=== PATIENT | male | born 1960 | race Caucasian/White ===

== ENCOUNTER 2020-09-05 08:07 | Day surgery (SDC) | payer OTHER ==
[~2020-09-05 08:07] MED LIST: AMLODIPINE-BEN1 EAC2 PO; LIPITOR20 MG PO; OMEPRAZOLE40 MG PO
--- NOTE | 2020-09-05 09:57 | NUR ---
09/05/20 0957 Arvin Mueller RESPONDS TO VOICE ON ENTRY TO [facility]. DENIES NAUSEA OR PAIN. FALLS ASLEEP EASILY
--- NOTE | 2020-09-05 10:41 | OR ---
[facility] [address], [place] [address] Signed DATE OF OPERATION: 09/05/2020 SURGEON: Maurice Thakur MD PREOPERATIVE DIAGNOSES: 1. Screening. 2. Colonoscopy, age 49, 2009 in [place], [place]. POSTOPERATIVE DIAGNOSES: 1. Minimal sigmoid diverticulosis. 2. Minimal internal hemorrhoids. 3. 5 mm polyp at 54 cm originally written 75 cm. 4. 10 mm sessile polyp, proximal right colon (snare). 5. 4 mm polyp at 55 cm. 6. 3 mm polyp at 40 cm. PROCEDURE: Colonoscopy, snare polypectomy and hot biopsy. ESTIMATED BLOOD LOSS: None. INDICATIONS: Obdulio is a 59-year-old gentleman, asked to see me for a followup colonoscopy. He underwent a colonoscopy at age 49 back in 2009. He thinks maybe a small polyp was removed, but he just can't remember. He did check with his mother and found out no polyps were removed. Currently, he has no lower GI complaints. In the office, I gave him a pamphlet on colonoscopy and we looked at that together along with the risks including, but not limited to gas bloating, crampy abdominal pain, bleeding, perforation requiring surgery, and missed diagnosis. We also discussed the need for IV conscious sedation, he had expressed understanding and wished to proceed. DESCRIPTION OF PROCEDURE: Obdulio was taken into our endoscopy suite and placed in the left lateral decubitus position. He was given 8 mg of Versed and 175 mcg of fentanyl to cover the case. A digital rectal exam was performed and he does have some induration to the prostate gland. It is not overly enlarged. He does have some external hemorrhoids. The adult colonoscope was then introduced, advanced up through a somewhat narrow angulated tortuous sigmoid colon. That required extra sedation. We did use just a little abdominal compression and the scope passed nicely into the cecum itself. His prep was Electronically Signed By: MAURICE THAKUR MD 09/05/20 1041 PATIENT NAME: OBDULIO MOORE OPERATIVE REPORT DATE OF : 58 REPORT #: [id number] PHYSICIAN: MAURICE THAKUR MD PCP: NO PRIMARY CARE PHYSICIAN REPORT IS CONFIDENTIAL AND NOT TO BE RELEASED WITHOUT AUTHORIZATION [facility] [address], [place] [address] Signed quite good. We could easily see the appendiceal orifice and the ileocecal valve. The scope was slowly withdrawn from the ileocecal valve on the same side as the ileocecal valve was a 10 mm sessile polyp. Easily removed with the snare and suctioned through the scope. The other polyps were removed with the help of hot biopsy forceps. Initially, we thought that polyp recorded at [address] into the colon. Of course, in the way back, we found out it was clear back at 54 cm. Next to that was another tiny polyp at 55 cm as well. We can see he has just a little bit of diverticulosis in the sigmoid colon. They were small in size, few in number, and scattered about. Upon retroflexion of the scope, he really has very minimal internal hemorrhoid tissue. After this, the gas was suctioned out and colonoscope removed. Obdulio tolerated the procedure quite well. RECOMMENDATIONS: I will see Obdulio back in my office in 7 to 14 days to review his results. MD SARBJIT West/RICKY /[id number] cc: MD Maurice Villanueva MD Copies: KIMBERLI BARRAZA MD, ANDREW L MD ~ Electronically Signed By: MAURICE THAKUR MD 09/05/20 1041 PATIENT NAME: OBDULIO MOORE OPERATIVE REPORT DATE OF : 58 REPORT #: [id number] PHYSICIAN: MAURICE THAKUR MD PCP: NO PRIMARY CARE PHYSICIAN REPORT IS CONFIDENTIAL AND NOT TO BE RELEASED WITHOUT AUTHORIZATION
--- NOTE | 2020-09-10 14:47 | PATH ---
[facility] [address], [place] [address] Signed SPECIMEN(S): A DESCENDING COLON POLYP AT 75 CM SPECIMEN(S): B ASCENDING COLON POLYP SPECIMEN(S): C DESCENDING COLON POLYP AT 55 CM SPECIMEN(S): D DESCENDING COLON POLYP AT 40 CM SPECIMEN SOURCE: A. DESCENDING COLON POLYP AT 75 CM B. ASCENDING COLON POLYP C. DESCENDING COLON POLYP AT 55 CM D. DESCENDING COLON POLYP AT 40 CM CLINICAL HISTORY: Screening; diagnosis of polyps MICROSCOPIC DESCRIPTION: Histologic sections of all submitted blocks are examined by light microscopy. These findings, together with the gross examination, support the pathologic diagnosis. FINAL PATHOLOGIC DIAGNOSIS: A. Colon, descending, polyp at 75 cm, polypectomy: - Tubular adenoma. - Negative for high-grade dysplasia or malignancy. B. Colon, ascending, polyp, polypectomy: - Tubular adenoma. - Negative for high-grade dysplasia or malignancy. C. Colon, descending, polyp at 55 cm, polypectomy: - Tubular adenoma. - Negative for high-grade dysplasia or malignancy. D. Colon, descending, polyp at 40 cm, polypectomy: - Colonic mucosa with no histopathologic abnormality. - Negative for dysplasia or malignancy. NAL:cml:C2NR GROSS DESCRIPTION: Four specimens are received in four containers, labeled `Obdulio Nielson. A. The specimen, labeled "Obdulio Edmondson, #1," and designated on the requisition "descending/left polypectomy 75 cm," is received in formalin and consists of one estrada soft tissue fragment that measures 0.3 cm in greatest dimension. The specimen is entirely submitted in cassette (A1). B. The specimen, labeled "Obdulio Edmondson, #2," and designated on the PATIENT NAME: OBDULIO EDMONDSON PATHOLOGY DATE OF : 58 REPORT #: [id number] PHYSICIAN: [facility] PCP: NO PRIMARY CARE PHYSICIAN REPORT IS CONFIDENTIAL AND NOT TO BE RELEASED WITHOUT AUTHORIZATION [facility] [address], [place] [address] Signed requisition "ascending/right polypectomy," is received in formalin and consists of one estrada soft tissue fragment that measures 0.9 cm in greatest dimension. The specimen is inked, bisected, and entirely submitted in cassette (B1). C. The specimen, labeled "Obdulio Edmondson, #3," and designated on the requisition "descending/left polypectomy 55 cm," is received in formalin and consists of one estrada soft tissue fragment that measures 0.3 cm in greatest dimension. The specimen is entirely submitted in cassette (C1). D. The specimen, labeled "Obdulio Edmondson, #4," and designated on the requisition "descending/left polypectomy 40 cm," is received in formalin and consists of one estrada soft tissue fragment that measures 0.3 cm in greatest dimension. The specimen is entirely submitted in cassette (D1). FB (under the direct supervision of a pathologist) The Gross Description was prepared using a voice recognition system. The report was reviewed for accuracy; however, sound-alike word errors, addition and/or deletions may occur. If there is any question about this report, please contact Client Services. PERFORMING LABORATORY: The technical component was performed by [facility], [address] [place] [id number] (Food Service Counter Clerk: Rosette Maher MD; CLIA# [id number]). Professional interpretation was performed by [facility], [place], [address] [place] [address] [address] (CLIA# [id number]). Diagnostician: Deepthi Tang MD Pathologist Electronically Signed 09/10/2020 Copies: ~ PATIENT NAME: OBDULIO EDMONDSON PATHOLOGY DATE OF : 58 REPORT #: [id number] PHYSICIAN: [facility] PCP: NO PRIMARY CARE PHYSICIAN REPORT IS CONFIDENTIAL AND NOT TO BE RELEASED WITHOUT AUTHORIZATION
== END 2020-09-05 10:28 | disposition home or self-care (01) ==
LOC: OPS 08:07 → DS 08:07 → OPS 09:45 → DS 09:45 → OPS 10:28
PROVIDERS: ATTEND Colon & Rectal Surgery
PROC: 0DBN8ZX Excision of Sigmoid Colon, Via Natural or Artificial Opening Endoscopic, Diagnostic (ICD-10-PCS; 2020-09-05)
PROC: 0DBC8ZX Excision of Ileocecal Valve, Via Natural or Artificial Opening Endoscopic, Diagnostic (ICD-10-PCS; principal; 2020-09-05 09:45)
DX: K63.5 Polyp of colon (principal); K57.30 Diverticulosis of large intestine without perforation or abscess without bleeding; F17.210 Nicotine dependence, cigarettes, uncomplicated; Z83.71 Family history of colonic polyps
CPT/HCPCS: 99153; G0500; J2250; J3010; J7121